=== PATIENT | female | born 1955 | race Caucasian/White ===

== ENCOUNTER 2017-01-15 15:42 | Emergency (ER) | payer OTHER ==
[~2017-01-15] VITALS: Ht 167.6 cm; Wt 87.3 kg
[2017-01-15 15:46] VITALS: BP 144/100; PULSE 85; RESP 20; O2SAT 97
--- NOTE | 2017-01-15 16:38 | ED.REPORT ---
HPI-Extremity Problem Lower Date of Service Jan 15, 2017 ED Provider: Max Quinones MD Pt is a generally healthy 61 y/o female presenting to the ED c/o RLE pain from the knee to the foot onset 1 week ago. Her pain was initially shooting which has progressed into constant pain and swelling causing her to be unable to walk. She denies any apparent trauma or injury, fever, chills, numbness, weakness. 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 Her pain is significant exacerbated by movement or attempting to walk. 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) Allergies: Coded Allergies: Penicillins (Verified Allergy, Mild, 05/19/09) Uncoded Allergies: Penicillin (Allergy, Mild, 11/24/03) PENICILLIN (Allergy, Unknown, 11/24/03) Scheduled PRN Hydrocodone-Acetaminophen 7.5-325/15 mL (Hydrocodone-Acetaminophen 7.5-325/15 mL ) 15 Ml Solution 5-15 ML PO Q4 PRN PRN For Pain General Time Seen by MD: 16:33 Chief Complaint Other (RLE pain) Hx Obtained From: Patient Arrived By: Wheelchair Onset Occurred: 1 week ago Symptom Duration: Since onset Location: : Leg right Quality: Painful Severity: Current: Moderate Severity: Maximum: Severe Exacerbated by: Range of motion, Movement Recent Healthcare: No recent doctor visit, No recent hospitalization Similar Sx Previous: No Past Medical History Past Medical History Hypertension Dysphagia GERD ?Hx of MS Past Surgical History Hysterectomy Smoking History Unknown if Ever Smoker Ambulatory Status Independent Review of Systems Constitutional: Denies: Chills, Fever Musculoskeletal: Reports: Extremity pain, Extremity swelling Skin: Denies Rash Neurologic: Denies: Focal weakness, Numbness, Weakness Complete sys rev & neg: except as marked. Physical Exam Initial Vital Signs Vital Signs (First) Date Time Temp Pulse Resp B/P Pulse Ox O2 Delivery O2 Flow Rate FiO2 01/15/17 15:46 36.9 85 20 144/100 97 Room Air Initial VS: Reviewed, Vital signs normal Head / Eyes: Atraumatic, Normocephalic, PERRL ENT: Mucous membranes moist, Conjunctiva normal, No scleral icterus Neck: Supple, Full range of motion Respiratory: Breath sounds normal, Clear to auscultation, No respiratory distress Cardiovascular: Regular rate & rhythm, Heart sounds normal, Intact distal pulses Abdomen / GI: Soft, Non-tender Upper Extremities: Vascular intact, Neuro intact, No swelling Skin: Warm, Dry, No cyanosis Neurologic: Alert, Oriented, Nonfocal Psychiatric: Mood/affect normal, Behavior normal, Normal thought content Lower Extremity / Pelvis / MS: Atraumatic, No deformity, Neurologic intact, Vascular intact, No compartment syndrome No point tenderness. No significant swelling Decreased flexion at knee causing some discomfort. No knee effusion, laxity, pre-patellar or patellar bursitis present. No palpable Chaudhari's cyst Ankle / Foot: Atraumatic, No deformity, Neurologic intact, Vascular intact, No compartment syndrome Interpretation & Diagnostics US Focused Lower Ext Venous No DVT or chaudhari's cyst of the RLE Exam Performed by: Allied health pract Exam Interpreted by: Allied health pract Re-Eval/Medical Decision Med Decision/Clinical Course This is a 61-year-old female presents complaining of some right leg especially kneeing calf pain over the past week, started after doing some work on her knees scrubbing floors for several days. She is noticing swelling underneath this pain in the popliteal fossa and a sense of swelling and discomfort-is referred from urgent care for an ultrasound. She is no previous history of DVT and no risk factors. Normal vitals and is well-appearing. Leg is neurovascularly intact without marked findings. This is decreased range of motion the knee, no effusion, no palpable bursa, no prepatellar bursitis is evident. There is no cellulitis or secondary signs of abscess or infection. No signs compartment syndrome. Neurovascular intact. Ultrasound is negative for DVT or chaudhari's cyst. Patient is being discharged him some pain medicine-she reports a history of active GERD Avoid NSAIDs, she also has some chronic dysphagia for liquids have received some hydrocodone elixir. She is discharged in stable condition. Routine precautions reviewed. Source of Hx: Old records Re-Evaluation/Progress : Time of Eval: 16:43 Re-Evaluation/Progress Note: Pt rechecked. Informed pt of plan for treatment. Pt understands and agrees with plan for treatment. F/U instructions and RTER warnings given. All questions addressed. Differential Diagnosis: Negative: Abrasion, Abscess, Achilles tendon rupture, Arterial occlus/ischemia, Cellulitis, Compartment syndrome, Femur fracture, Fibular fracture, Guillain-Tridell syndrome, Hip dislocation ant, Hip dislocation post, Intertrochanteric fractur, Knee disloc ant, Knee disloc post, Knee fracture, Venous thromboembolism Counseled Regarding: Diagnosis, Need for follow-up, When/why to return to ED Discharge & Departure Impression: Primary Impression: Right leg pain Disposition: Home Discharge Condition All VS Reviewed: Yes Condition: Stable Additional Instructions: 1. No DVT or Chaudhari's cyst was appreciated on ultrasound. 2. Take it easy, but activities as tolerated. 3. If needed for pain take hydrocodone/APAP elixir: 5-15ml (1 - 3 teaspoons) up to every 4-6 hours as needed for more severe pain. NOTE: This medication contains a narcotic and causes drowsiness. NO driving for at least 4 hours after taking. 4. Return if new or worsening symptoms. Referrals: Belem Antony PA-C (PCP) Scribe Attestation Portions of this note were transcribed by Uri Rivas. I, Dr. Quinones personally performed the history, physical exam and medical decision-making; I reviewed and confirmed the accuracy of the information in the transcribed note. Signed by Fransico Zaidi, 01/15/17 - [id number] copies to: Belem Antony PA-C, Matthew F MD Jan 15, 2017 16:38 URI RIVAS Jan 15, 2017 16:44
[2017-01-15] MEDS ORDERED: HYDROcodone-APAP 7.5-325 mg/15 mL 15 mL Solution PO ONE (16:45)
[2017-01-15] MEDS ORDERED: HYDR15SO8 PO (16:46)
--- NOTE | 2017-01-15 19:41 | DRSVH ---
PROCEDURE: US VEINOUS LEG DUPLEX UNILATERAL, RIGHT INDICATIONS: r/o dvt ,leg pain TECHNIQUE: Real-time imaging, as well as color and pulse Doppler interrogation, were performed of the lower extr emity deep veins from the inguinal ligament to the popliteal fossa. COMPARISON: None. FINDINGS: The deep veins are normally compressible, and free of intraluminal thrombus. Color and pu lse Doppler demonstrate normal phasic intraluminal flow. There is normal augmentation response to di stal compression maneuver. IMPRESSION: No DVT in the right lower extremity. Dictated by: Shawanda Park M.D. on 01/15/2017 at 19:39 Approved by: Shawanda Park M.D. on 01/15/2017 at 19:39
[2017-01-25] MEDS ORDERED: ALPR3TAB PO (15:41)
[2017-01-25] MEDS ORDERED: ATEN25TA PO (15:41)
[2017-01-25] MEDS ORDERED: FLUT16SP NS (15:41)
[2017-01-25] MEDS ORDERED: HYDR25TA4 PO (15:41)
[2017-01-25] MEDS ORDERED: ESOM40CA53 PO (15:41)
== END 2017-01-15 17:17 | disposition home or self-care (01) ==
LOC: SED 15:42
DX: M79.661 Pain in right lower leg (principal); X50.1XXA Overexertion from prolonged static or awkward postures, initial encounter; Y93.E5 Activity, floor mopping and cleaning; Y99.8 Other external cause status; Y92.9 Unspecified place or not applicable; I10 Essential (primary) hypertension; K21.9 Gastro-esophageal reflux disease without esophagitis; R13.10 Dysphagia, unspecified; Z90.710 Acquired absence of both cervix and uterus; Z88.0 Allergy status to penicillin

== ENCOUNTER 2017-01-26 09:44 | Day surgery (SDC) | payer OTHER ==
[~2017-01-26] VITALS: Ht 167.6 cm; Wt 93.4 kg
[~2017-01-26 09:44] MED LIST: 0.9% Sodium Chloride 1,000 ML IV SCH; ALPR3TAB PO; ATEN25TA PO; ESOM40CA53 PO; FLUT16SP NS; HYDR15SO8 PO; HYDR25TA4 PO; Sodium Chloride LOK Flush 10 mL Syringe IV PRN; fentaNYL-PF 50 mCg/mL 2 mL Inj IVPUSH PRN
[2017-01-26 10:45] VITALS: BP 153/87; PULSE 82; O2SAT 99
[2017-01-26] MEDS ORDERED: 0.9% Sodium Chloride 1,000 ML IV ONE (11:33)
--- NOTE | 2017-01-26 11:45 | PCM.ENDCOL ---
Colonoscopy Date of Service: Jan 26, 2017 Physician Ra Chavis MD Pre Procedure Diagnosis: Blood in the stools screening Post Procedure Dx & Findings: Polyp hemorrhoids diverticuli Procedure Colonoscopy PROCEDURE IN DETAIL: Prep adequate Withdrawal time 11 minutes After unremarkable rectal examination the Olympus video colonoscope was inserted patient's anal canal and was advanced to cecum. Landmarks were identified including the ileocecal valve and appendiceal orifice. Scope was withdrawn systematically. Visualized colonic mucosa showed healthy shiny mucosa with normal healthy-appearing vasculature. In the rectosigmoid junction, there were total of 3 polyps. The largest was 1 cm. This was resected completely using hot snare. One hemostatic clip deployed successfully. The other 2 were about 3-4 mm in size which were resected completely using cold snare. Diverticuli noted mostly in the sigmoid colon. In the rectum retroflexion was done which showed hemorrhoids. Anal canal was inspected carefully on the way out and hemorrhoids noted. Impression Polyps 3 status post complete removal. Largest was 1 cm. Diverticuli Hemorrhoids Recommendation Repeat colonoscopy 3 years Diverticular diet Presedation Assessment Risks and Benefits Informed consent was obtained from the patient after all risks and benefits including but not limited to drug reaction, infection, pain, bleeding, perforation, as well as alternatives were discussed. Patient monitoring Continuous pulse oximetry, cardiac monitoring, blood pressure monitoring, IV access, and oxygen at 2L per nasal cannula. Periprocedural Fentanyl: Fentanyl 175mcg Incrementally Midazolam: Midazolam 9mg Incrementally Complications There were no periprocedural complications identified. Post Procedure Plan Post Procedure Recommendations 1. Restrict activities today. 2. Resume normal activities in the morning. 3. Resume medications. 4. Patient informed of normal post procedure side effects as bloating, drowsiness, blood streaking in the stool. 5. average risk CRCS. If colon polyps come back as: -Hyperplastic- can repeat colonoscopy in 10 years -Tubular adenoma- repeat colonoscopy in 5 years -Tubulovillous/villous adenoma- repeat colonoscopy in 3 years -If any dysplasia- return to clinic as soon as possible 6. Please don't hesitate to call me with any questions. Ra Chavis MD Jan 26, 2017 11:45
[2017-01-26 11:50] VITALS: BP 148/79; PULSE 86; RESP 16; O2SAT 99
[2017-01-26 12:10] VITALS: BP 149/89; PULSE 86; RESP 16; O2SAT 98
[2017-01-26 12:18] VITALS: BP 155/79; PULSE 90; RESP 16; O2SAT 97
--- NOTE | 2017-02-02 09:30 | PATH ---
SURGICAL PATHOLOGY Attending Physician:Ra Chavis M.D. CASE STATUS: Signed Out PATIENT NAME: JANES SMITH PID: [id number] : 1955 DATE COLLECTED:01/26/2017 00:00 SPECIMEN: Colon, Polyp CLINICAL HISTORY: 1). SIGMOID RECTAL POLYP X3 FINAL DIAGNOSIS: Sigmoid/Rectal Polyp, Biopsy: Portion of tubular adenoma x2; negative for high-grade dysplasia. Portions of hyperplastic polyp x2. Superficial portion of colorectal mucosa x1 with no significant histomorphologic abnormality. ICD10: K63.5 GROSS DESCRIPTION: Received one formalin-filled container, labeled with the patient' s name and "sigmoid/rectal polyp". The specimen consists of four portions of tissue which aggregate to 0.6 x 0.6 x 0.6 cm. The largest piece is bisected. All fragments are entirely submitted in one cassette. (DC:[id number]) ICD-9 CODES: CPT CODES: 1: 03189 Electronically Signed Out Soha Zambrano MD [facility] [address], [place] [address] Technical component performed at [facility], [address] [place] [address] Ave[address], [place], [address]
== END 2017-01-26 23:59 | disposition home or self-care (01) ==
LOC: END 09:44
PROVIDERS: ATTEND Internal Medicine
DX: K63.5 Polyp of colon (principal); K57.30 Diverticulosis of large intestine without perforation or abscess without bleeding; E03.9 Hypothyroidism, unspecified; I10 Essential (primary) hypertension; M79.7 Fibromyalgia; D12.7 Benign neoplasm of rectosigmoid junction; K64.9 Unspecified hemorrhoids
CPT/HCPCS: 45385; 99153; G0500; J2250; J3010; J7030